=== PATIENT | female | born 1980 | race Caucasian/White ===

== ENCOUNTER → 2016-06-25 | Outpatient (CLI) | payer BC ==
[2014-11-25 15:27] VITALS: BP 134/76
[~2016-06-25] MED LIST: ASPI-482 PO
--- NOTE | 2016-06-25 12:44 | KCIC ---
Examination: Ultrasound soft tissue neck HISTORY History of followup prominent lymph nodes COMPARISON 06/14/2014. Findings : Few subcentimeter benign-appearing lymph nodes identified in the right neck region. No evidence of abnormal lymph nodes identified. IMPRESSION 1. No evidence of abnormal lymph nodes identified. 2. Small benign appearing lymph nodes identified with small sub centimeter benign appearing lymph node identified in the right neck. Electronically signed by: Chao Newberry (Jun 25, 2016 12:43:40)
== END | disposition home or self-care (01) ==
LOC: KCIC US 11:18
PROVIDERS: ATTEND Nurse Practitioner Family
DX: R59.0 Localized enlarged lymph nodes (principal)
CPT/HCPCS: 76536

== ENCOUNTER → 2018-02-18 | Outpatient (CLI) | payer OTHER, BC ==
[2014-11-25 15:27] VITALS: BP 134/76
--- NOTE | 2018-02-18 15:26 | KCIC ---
PA and lateral chest radiograph. History: Cough, shortness of breath, fatigue. Symptoms for one week. 22 pack year smoking history. Comparison: October 31, 2009. Findings: Cardiomediastinal silhouette is within normal limits for size. Bilateral lung whiting appear clear without evidence of infiltrate, effusion, or pneumothorax. Mild infiltrate is seen in the right lower lobe. Impression: 1. Mild right lower lobe infiltrate Electronically signed by: Cade Blakely MD (02/18/2018 3:22 PM) [place] [id number]
== END | disposition home or self-care (01) ==
LOC: KCIC 14:17
PROVIDERS: ATTEND Family Medicine
DX: R91.8 Other nonspecific abnormal finding of lung field (principal); Z87.891 Personal history of nicotine dependence
CPT/HCPCS: 71046